=== PATIENT | female | born 1970 | race Caucasian/White ===

== ENCOUNTER → 2016-09-22 | Outpatient (CLI) | payer MEDICAID ==
[~2016-09-22] MED LIST: 00186-0372-20 IH; AMOXICILLIN 50500 MG PO; NO HOME MEDICATIONS; NORCO 325 MG-51 TAB PO; PEN-VEE K500 MG PO; PROAIR HFA0.09 MG/AC IH; ULTRAM 50MG TAB50 MG PO; ZITHROMAX Z PA250 MG PO
== END ==
LOC: COL.PUL 13:00
DX: J44.9 Chronic obstructive pulmonary disease, unspecified (principal)

== ENCOUNTER 2016-11-10 10:52 | Emergency (ER) | payer MEDICAID ==
[~2016-11-10] VITALS: Ht 170.2 cm; Wt 115.0 kg
[~2016-11-10 10:52] MED LIST changes: -AMOXICILLIN 50500 MG PO
[2016-11-10 11:10] VITALS: BP 143/106; PULSE 75; TEMP 98
[2016-11-10] MEDS ORDERED: AMOXICILLIN 50500 MG PO (12:23)
[2016-11-10] MEDS ORDERED: NORCO 325 MG-51 TAB PO (12:23)
== END 2016-11-10 12:37 | disposition home or self-care (01) ==
LOC: COL.ER 10:52
DX: K12.2 Cellulitis and abscess of mouth (principal); K08.89 Other specified disorders of teeth and supporting structures; F17.210 Nicotine dependence, cigarettes, uncomplicated

== ENCOUNTER → 2017-02-09 | Outpatient (CLI) | payer MEDICAID ==
[~2017-02-09] MED LIST changes: +AMOXICILLIN 50500 MG PO
== END ==
LOC: COL.RAD 06:46
DX: M47.817 Spondylosis without myelopathy or radiculopathy, lumbosacral region (principal); M16.12 Unilateral primary osteoarthritis, left hip; M17.11 Unilateral primary osteoarthritis, right knee